=== PATIENT | female | born 1985 | race Two or more races ===

== ENCOUNTER 2020-03-27 09:40 | Emergency (ER) | payer SELFPAY ==
[~2020-03-27] VITALS: Ht 154.9 cm; Wt 72.7 kg
[2020-03-27 09:47] VITALS: Ht 154.9 cm; Wt 72.7 kg
[2020-03-27 10:36] LABS: BASOPHILS 0.2 % (0-2); EOSINOPHILS 1.3 % (0-7); HEMATOCRIT 37.9 % (36.0-48.0); HEMOGLOBIN 13.3 g/dL (12-16); IMMATURE GRANULOCYTES 0.2 % (0-5); LYMPHOCYTES 33.3 % (15-50); MCH 29.7 pg (26.0-34.0); MCHC 35.1 g/dL (31.0-37.0); MCV 84.6 fL (80.0-100.0); MEAN PLATELET VOLUME 8.3 fL (7.4-10.4); MONOCYTES 4.3 % (2-11); NEUTROPHILS 60.7 % (40-80); PLATELET COUNT 241 10x3/uL (130-400); RBC 4.48 10x6/uL (4.00-5.40); RDW 12.3 % (11.5-14.5); WBC 4.5 10x3/uL (4.8-10.8)
[2020-03-27 10:43] LABS: CALC OSMOLALITY 270 mosm/kg (275-300); CALCIUM 8.4 mg/dL (8.5-10.1); CARBON DIOXIDE 22.4 mmol/L (21.0-32.0); CHLORIDE - SERUM 106 mmol/L (98-107); CREATININE - SERUM 0.8 mg/dL (0.6-1.3); GLUCOSE 96 mg/dL (74-106); POTASSIUM - SERUM 3.8 mmol/L (3.5-5.1); SODIUM 136 mmol/L (136-145); UREA NITROGEN 10 mg/dL (7-18); eGFR NON AFRICAN AMERICAN 87 mL/min (90-120)
[2020-03-27 10:45] LABS: HCG URINE NEGATIVE (NEGATIVE)
[2020-03-27 10:59] LABS: ALBUMIN 4.1 g/dL (3.4-5.0); ALKALINE PHOSPHATASE 63 U/L (30-120); ALT (SGPT) 15 U/L (10-68); BILIRUBIN - TOTAL 0.56 mg/dL (0.2-1.3); PROTEIN - SERUM 7.1 g/dL (6.4-8.2)
[2020-03-27 11:05] LABS: BACTERIA MODERATE /hpf (NONE SEEN); BILIRUBIN NEGATIVE (NEGATIVE); EPITHELIAL CELLS 0-5 /hpf (0-5); KETONE NEGATIVE (NEGATIVE); NITRITE NEGATIVE (NEGATIVE); RED CELLS - URINE RARE /hpf (0-5); UROBILINOGEN NORMAL (NORMAL)
[2020-03-27] MEDS ORDERED: MACROBID100 MG PO (12:13)
[2020-03-27] MEDS ORDERED: FLAGYL500 MG PO (12:13)
[2020-03-27 12:22] VITALS: BP 125/83
[2020-03-28 08:13] LABS: FOLLICLE STIMULATING HORMONE 4.2 mIU/mL (()); LUTEINIZING HORMONE 2.8 mIU/mL (()); PROLACTIN 26.6 ng/mL (4.8-23.3)
== END 2020-03-27 12:22 | disposition home or self-care (01) ==
LOC: D.ER 09:40
PROVIDERS: Emergency Medicine
DX: N91.2 Amenorrhea, unspecified (principal); A59.9 Trichomoniasis, unspecified; R10.9 Unspecified abdominal pain